=== PATIENT | male | born 1965 | race Caucasian/White ===

== ENCOUNTER 2017-03-06 18:21 | Emergency (ER) | payer OTHER, BC ==
[2017-03-06 18:31] VITALS: BP 151/94
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
--- NOTE | 2017-03-07 11:40 | CR ---
Abdomen: Supine and upright views of the abdomen were obtained. Comparison: No previous study. Bowel gas pattern appears normal. No abnormal calcifications or soft tissue abnormality is seen. Bony structures appear within normal limits for the patient's age. Impression: 1. Unremarkable two-view abdominal x-ray. Diagnostic code #1
== END 2017-03-06 20:23 | disposition home or self-care (01) ==
LOC: JD.ED 18:21
DX: R10.31 Right lower quadrant pain (principal); I10 Essential (primary) hypertension; Z98.890 Other specified postprocedural states; Z79.899 Other long term (current) drug therapy; Z91.030 Bee allergy status
CPT/HCPCS: 74020; 74020-26; 99282; 99284

== ENCOUNTER 2020-06-19 15:25 | Emergency (ER) | payer BC ==
[2020-06-19 15:41] VITALS: BP 164/100; PULSE 74
--- NOTE | 2020-06-19 15:57 | EDM.PDOC ---
ED HPI GENERAL MEDICAL PROBLEM - General Chief Complaint: Chest Pain Stated Complaint: HIGH TROPONIN LEVEL (REFERED BY GANGA) Time Seen by Provider: 06/19/20 15:46 Source of Information: Reports: Patient History Limitations: Reports: No Limitations - History of Present Illness INITIAL COMMENTS - FREE TEXT/NARRATIVE: 54-year-old male presents to the ED at the request of his family physician Dr. Rodriguez. Patient states he awoke at about 0230 hours this morning with a cramp between his shoulder blades which then turned into central chest pain that lasted about 3 to 4 minutes and then dissipated. He continues to feel a uncomfortable feeling along the right costal margin laterally. He just walked across the hospital which is 2 city blocks without any chest pain and he walks 3 miles daily without any chest pain development. He has no risk factors for cardiac disease. Apparently a troponin done this morning however it was elevated at 0.144. Patient states he has not had any chest pain since awakening in the early hours of the morning and he went back to sleep. He has no trouble swallowing. He did report that he had to burp and belch and this did seem to re lieve his discomfort during the night. Interestingly had a similar event about 2 weeks ago. Of also interest is that he is getting over COVID-19 illness. He believes he was diagnosed around 08 May 2020. He loses sense of taste and smell and he believes he is got about 90% of his back. He had a cough body aches headaches diarrhea etc. He felt that he is recovered completely from this illness by 30 May. Patient does remember eating late last night shortly before going to bed. He has no known hiatal hernia. He very rarely gets heartburn. Uses Tums on rare occasion. History of mild hypertension well- controlled with current medication. Recalls a similar event in July 2014 when he was sent to [facility] due to development of chest pain and elevated troponin. He had an ECG stress test carried out and it was negative and he was discharged to home. He therefore questions whether he runs an elevated troponin all the time. Onset: Today, Sudden Onset Date: 06/19/20 Onset Time: 02:30 (Awoke from sleep around 0230 hrs. this morning with a severe cramping type pain between his shoulder blades that then seemed to come around and be in the central part of his chest. The whole episode lasted approximately 4 minutes and seemed to improve with burping and belching.) Duration: Hour(s):, Resolved Prior to Arrival Location: Reports: Chest (Central chest pressure discomfort preceded by cramping type pain in mid back) Quality: Reports: Pressure Severity: Moderate Improves with: Reports: Other (Pain went away after 45 minutes and has not returned and is not worsened with walking today.) Worsens with: Reports: None Context: Denies: Activity, Exercise, Lifting, Sick Contact, Trauma, Other Associated Symptoms: Reports: No Other Symptoms. Denies: Confusion, Chest Pain, Cough, cough w sputum, Diaphoresis, Fever/Chills, Headaches, Loss of Appetite, Malaise, Nausea/Vomiting, Rash, Seizure, Shortness of Breath, Syncope, Weakness Treatments NAVIGATION OFFICER: Reports: Other (see below) (None.) Right Lower Chest Pain Score (Numeric/FACES): 2 - Related Data Allergies Allergy/AdvReac Type Severity Reaction Status Date / Time venom-honey bee Allergy Swelling Verified 06/19/20 15:41 [bee venom (honey bee)] Home Meds: Home Meds Losartan/Hydrochlorothiazide [Losartan-HCTZ 50-12.5 MG] 12.5 - 50 mg PO DAILY 08/27/14 [History] Past Medical History Cardiovascular History: Reports: Hypertension Gastrointestinal History: Reports: Other (See Below) Other Gastrointestinal History: hernia surgery - Infectious Disease History Infectious Disease History: Reports: Novel Coronavirus Other Infectious Disease History: tested positive over 1 month ago. all symptoms resolved Social & Family History - Tobacco Use Smoking Status *Q: Never Smoker - Living Situation & Occupation Living situation: Reports: ED ROS GENERAL - Review of Systems Review Of Systems: See Below Constitutional: Denies: Fever, Chills, Malaise, Weakness, Fatigue, Decreased Appetite, Weight Loss HEENT: Reports: No Symptoms, Other (He states his sense of smell and taste are about 90% better since ghassan COVID-19 illness.) Respiratory: Reports: Shortness of Breath ( particularly first thing in the morning.), Cough (Still has a post COVID cough and has to clear his throat and chest). Denies: Wheezing, Pleuritic Chest Pain ( Short of breath on vigorous walking.) Cardiovascular: Reports: Chest Pain (Transient chest pain that awoke him from sleep), Blood Pressure Problem ( at 0230 hrs. this morning.), Other (Ox 3 miles a day without any chest pain.). Denies: Claudication ( Controlled with medication), Dyspnea on Exertion, Edema, Lightheadedness, Orthopnea Endocrine: Reports: No Symptoms GI/Abdominal: Reports: Abdominal Pain (Is a bit of an ache along the right lateral costal margin.) : Reports: No Symptoms Musculoskeletal: Reports: No Symptoms Skin: Reports: No Symptoms Neurological: Reports: No Symptoms Psychiatric: Reports: No Symptoms Hematologic/Lymphatic: Reports: No Symptoms Immunologic: Reports: No Symptoms ED EXAM, GENERAL - Physical Exam Exam: See Below Exam Limited By: No Limitations General Appearance: Alert, WD/WN, No Apparent Distress, Other (Temperature is 36.8 heart rate 74 and sinus respiratory is 18 BP 164 100 pulse ox 98% on room air.) Eye Exam: Bilateral Eye: Normal Inspection (No scleral icterus or blepharal pallor.), PERRL Throat/Mouth: Normal Inspection, Normal Lips, Normal Teeth, Normal Oropharynx Head: Atraumatic, Normocephalic Neck: Normal Inspection, Supple, Non-Tender, Full Range of Motion. No: Carotid Bruit, Lymphadenopathy (L), Lymphadenopathy (R) Respiratory/Chest: No Respiratory Distress, Lungs Clear, Normal Breath Sounds, No Accessory Muscle Use, Chest Non-Tender Cardiovascular: Normal Peripheral Pulses, Regular Rate, Rhythm, No Edema, No Gallop, No Murmur, No Rub Peripheral Pulses: 3+: Carotid (L), Carotid (R), Posterior Tibial (L), Posterior Tibial (R), Dorsalis Pedis (L), Dorsalis Pedis (R) GI/Abdominal: Normal Bowel Sounds, Soft, Non-Tender, No Organomegaly, No Distention, No Abnormal Bruit, No Mass, Pelvis Stable. No: Guarding, Rigid, Rebound, Tender Extremities: Normal Inspection, Normal Range of Motion, Non-Tender, No Pedal Edema Neurological: Alert, Oriented, CN II-XII Intact, Normal Cognition Psychiatric: Normal Affect, Normal Mood, Anxious (Appropriately mildly anxious after being called back by his physician due to an elevated troponin and to report to the ED.) Skin Exam: Warm, Dry, Intact, Normal Color, No Rash EKG INTERPRETATION EKG Date: 06/19/20 Time: 15:34 Rhythm: NSR Rate (Beats/Min): 74 [place]: Normal P-Wave: Present QRS: Other (Early R wave transition in lead V3. Consider septal hypertrophy pattern.) ST-T: Other (Nonspecific T wave flattening in leads III and aVF V5 and V6. Mildly decreased voltage in the limb leads.) QT: Normal EKG Interpretation Comments: Borderline ECG no signs of ischemia. Course - Vital Signs Last Recorded V/S: Last Vital Signs Temp 36.8 C 06/19/20 15:37 Pulse 74 06/19/20 15:37 Resp 18 06/19/20 15:37 BP 164/100 H 06/19/20 15:37 Pulse Ox 98 06/19/20 15:37 - Orders/Labs/Meds Orders: Active Orders 24 hr Category Date Time Status Peripheral IV Insertion Adult [OM.PC] Stat Oth 06/19/20 16:04 Ordered Labs: Laboratory Tests 06/19/20 06/19/20 06/19/20 Range/Units 15:52 15:52 15:52 WBC 7.88 (4.23-9.07) K/mm3 RBC 5.13 (4.63-6.08) M/mm3 Hgb 14.6 (13.7-17.5) gm/dl Hct 42.7 (40.1-51.0) % MCV 83.2 (79.0-92.2) fl MCH 28.5 (25.7-32.2) pg MCHC 34.2 (32.2-35.5) g/dl RDW Std Deviation 38.6 (35.1-43.9) fL Plt Count 361 H (163-337) K/mm3 MPV 9.1 L (9.4-12.3) fl Neut % (Auto) 59.2 (34.0-67.9) % Lymph % (Auto) 29.3 (21.8-53.1) % [place] % (Auto) 7.9 (5.3-12.2) % Eos % (Auto) 2.8 (0.8-7.0) Baso % (Auto) 0.5 (0.1-1.2) % Neut # (Auto) 4.67 (1.78-5.38) K/mm3 Lymph # (Auto) 2.31 (1.32-3.57) K/mm3 [place] # (Auto) 0.62 (0.30-0.82) K/mm3 Eos # (Auto) 0.22 (0.04-0.54) K/mm3 Baso # (Auto) 0.04 (0.01-0.08) K/mm3 PT 11.5 (9.7-11.7) SECONDS INR 1.08 APTT 25 (22-31) SECONDS D-Dimer, Quantitative 0.57 H (0.19-0.50) mg/L Sodium 140 (136-145) mEq/L Potassium 3.5 (3.5-5.1) mEq/L Chloride 102 (98-107) mEq/L Carbon Dioxide 28 (21-32) mEq/L Anion Gap 13.5 (5-15) BUN 18 (7-18) mg/dL Creatinine 1.1 (0.7-1.3) mg/dL Est Cr Clr Drug Dosing TNP Estimated GFR (MDRD) > 60 (>60) mL/min BUN/Creatinine Ratio 16.4 (14-18) Glucose 108 H (74-106) mg/dL Calcium 8.7 (8.5-10.1) mg/dL Magnesium 2.2 (1.8-2.4) mg/dl Total Bilirubin 0.4 (0.2-1.0) mg/dL AST 24 (15-37) U/L ALT 51 (16-63) U/L Alkaline Phosphatase 86 (46-116) U/L CK-MB (CK-2) 0.7 (0-3.6) ng/ml Troponin I 0.114 H* (0.00-0.056) ng/mL C-Reactive Protein 0.9 (<1.0) mg/dL NT-Pro-B Natriuret Pep (0-125) pg/mL Total Protein 7.6 (6.4-8.2) g/dl Albumin 4.0 (3.4-5.0) g/dl Globulin 3.6 gm/dL Albumin/Globulin Ratio 1.1 (1-2) Urine Color (Yellow) Urine Appearance (Clear) Urine pH (5.0-8.0) Ur Specific [place] (1.005-1.030) Urine Protein (Negative) Urine Glucose (UA) (Negative) Urine Ketones (Negative) Urine Occult Blood (Negative) Urine Nitrite (Negative) Urine Bilirubin (Negative) Urine Urobilinogen (0.2-1.0) Ur Leukocyte Esterase (Negative) Urine RBC (0-5) /hpf Urine WBC (0-5) /hpf Ur Squamous Epith Cells (0-5) /hpf Urine Bacteria (FEW) /hpf Urine Mucus (FEW) /hpf 06/19/20 06/19/20 Range/Units 15:52 16:20 WBC (4.23-9.07) K/mm3 RBC (4.63-6.08) M/mm3 Hgb (13.7-17.5) gm/dl Hct (40.1-51.0) % MCV (79.0-92.2) fl MCH (25.7-32.2) pg MCHC (32.2-35.5) g/dl RDW Std Deviation (35.1-43.9) fL Plt Count (163-337) K/mm3 MPV (9.4-12.3) fl Neut % (Auto) (34.0-67.9) % Lymph % (Auto) (21.8-53.1) % [place] % (Auto) (5.3-12.2) % Eos % (Auto) (0.8-7.0) Baso % (Auto) (0.1-1.2) % Neut # (Auto) (1.78-5.38) K/mm3 Lymph # (Auto) (1.32-3.57) K/mm3 [place] # (Auto) (0.30-0.82) K/mm3 Eos # (Auto) (0.04-0.54) K/mm3 Baso # (Auto) (0.01-0.08) K/mm3 PT (9.7-11.7) SECONDS INR APTT (22-31) SECONDS D-Dimer, Quantitative (0.19-0.50) mg/L Sodium (136-145) mEq/L Potassium (3.5-5.1) mEq/L Chloride (98-107) mEq/L Carbon Dioxide (21-32) mEq/L Anion Gap (5-15) BUN (7-18) mg/dL Creatinine (0.7-1.3) mg/dL Est Cr Clr Drug Dosing Estimated GFR (MDRD) (>60) mL/min BUN/Creatinine Ratio (14-18) Glucose (74-106) mg/dL Calcium (8.5-10.1) mg/dL Magnesium (1.8-2.4) mg/dl Total Bilirubin (0.2-1.0) mg/dL AST (15-37) U/L ALT (16-63) U/L Alkaline Phosphatase (46-116) U/L CK-MB (CK-2) (0-3.6) ng/ml Troponin I (0.00-0.056) ng/mL C-Reactive Protein (<1.0) mg/dL NT-Pro-B Natriuret Pep 51 (0-125) pg/mL Total Protein (6.4-8.2) g/dl Albumin (3.4-5.0) g/dl Globulin gm/dL Albumin/Globulin Ratio (1-2) Urine Color Yellow (Yellow) Urine Appearance Clear (Clear) Urine pH 7.0 (5.0-8.0) Ur Specific [place] 1.020 (1.005-1.030) Urine Protein Negative (Negative) Urine Glucose (UA) Negative (Negative) Urine Ketones Negative (Negative) Urine Occult Blood Trace-intact H (Negative) Urine Nitrite Negative (Negative) Urine Bilirubin Negative (Negative) Urine Urobilinogen 0.2 (0.2-1.0) Ur Leukocyte Esterase Negative (Negative) Urine RBC 0-5 (0-5) /hpf Urine WBC 0-5 (0-5) /hpf Ur Squamous Epith Cells 0-5 (0-5) /hpf Urine Bacteria Few (FEW) /hpf Urine Mucus Not seen (FEW) /hpf Meds: Medications Discontinued Medications Generic Name Dose Route Start Last Admin Trade Name Freq PRN Reason Stop Dose Admin Sodium Chloride 10 ml 06/19/20 16:04 06/19/20 16:05 Saline Flush FLUSH 10 ml ASDIRECTED PRN Administration Keep Vein Open - Radiology Interpretation Free Text/Narrative:: 54-year-old male attends the ED at the request of his primary care physician . Patient presented to the clinic early this morning after being awoken around 0 to 30 hours in the morning with a bad cramping pain between his shoulder blades which turned into central chest pressure discomfort lasting about 4 to 5 minutes and seemingly improved by burping and belching. Patient was able to roll over and go back to sleep and when he awoke he had no pain. When he attended the clinic however he had lab work performed and was found to have a slightly elevated d-dimer at 0.58 with normal being up to 0.50 and an elevated troponin at 0.144. These results did not become available to Dr. Rodriguez until well after the patient had left his office. Due to the elevated troponin patient was advised to return to the ED for follow-up of possible myocardial infarction. On firm questioning the patient has no chest pain he just walked from the other side of the hospital which is like 2 blocks. He indicates that he walks at least 3 miles a day with his and never has chest pains. He had a similar bout of cramping between his shoulder blades and anterior chest pain about 2 weeks ago. At all the of the times it was felt that this occurred after eating a rather large meal and last night he went to bed shortly after eating as well. This suggest possible hiatal hernia as a cause of his transient chest pain. Particularly since it improved with burping and belching. He is repeat ECG in the department shows sinus rhythm at 74/min. There is early R wave transition giving some concern for possible septal hypertrophy. There was decreased voltage in the limb leads. There is T wave flattening in leads III and aVF and V5 and V6 which are nonspecific findings. No obvious ischemic change present. Plan he will have repeat labs performed including CK-MB fraction and troponin and d-dimer. Examination is otherwise completely normal. - Re-Assessments/Exams Free Text/Narrative Re-Assessment/Exam: 06/19/20 17:26: . Labs reveal a white count of 7.88 with 59% neutrophils. Hemoglobin is 14.6 with hematocrit of 42.7. Platelet count slightly elevated at 361,000. PT was 11.5 with an INR of 1.08. PTT was 25 d-dimer now is 0.57 and it was 0.58 earlier today at [facility]. Sodium 140 with a potassium low normal at 3.5. Chloride 102 with a bicarb of 28. Anion gap is 13.5. BUN is 18 with a creatinine of 1.1 and GFR greater than 60. Glucose is 108 calcium 8.7. Magnesium normal at 2.2. Liver function normal CK-MB fraction was 0.7 troponin I is elevated at 0.114 lower than at the clinic today but still elevated. BNP is 51 total protein 7.6 with an albumin fraction of 4.0. Urinalysis revealed a trace of occult blood. I discussed the findings with the patient and he indicated that he was hospitalized at [facility] in about 2013 shortly before the old hospital was closed. I therefore informed that institution and identified that he was seen around August 12 or after because of transient central chest pain similar to what he experienced this morning. He had elevated troponin I at that time as well. He ended up having a ECG stress test and was discharged home. One wonders therefore if he does not have a chronically elevated serum troponin level. However when I spoke with Dr. Adams--on-call table assembler he identified that they are identifying patients post COVID illness who are developing a post COVID myocarditis with elevated troponins. He recommends the patient have a echocardiogram and follow-up. The findings were discussed with the patient and I did contact his primary care physician Dr. Rodriguez who will set up the echocardiogram as an outpatient. I am thinking that he probably has a hiatal hernia which caused his transient back and chest pain earlier this morning and that the 2 things are not related. Patient will be discharged to home with no changes made other than suggesting a baby aspirin once a day. Departure - Departure Time of Disposition: 17:42 Disposition: Home, Self-Care 01 Reason for Transfer *Q: Other Condition: Fair Clinical Impression: Myocarditis due to COVID-19 virus, Hiatal hernia Instructions: COVID-19, Hiatal Hernia Referrals: Isrrael Reece MD [Primary Care Provider] - Forms: ED Department Discharge Additional Instructions: Evaluation in the emergency room today at the request of your primary care physician . You developed a bout of cramping pain in between her shoulder blades which then became anterior chest pressure discomfort in the middle of the night this morning which resolved after 4 minutes or so. You have been walking and been been busy the rest of the day with no recurrence of chest pain. Checkup at the clinic today revealed that you had elevated d-dimer mildly at 0.58. Normal is 0.50. Your troponin which is a marker for heart muscle was elevated at 0.144 with normal being 0.056. On retesting here in the emergency room your ECG is normal he remained pain-free. Your troponin now is 0.114 and the CK-MB fraction which goes up usually within the first 24 hours of a heart attack is 0.7 well within the normal range. Your d-dimer now is 0.57 the same as it was this morning and is of no consequence. On speaking with cardiology at [facility] in [place] they indicate that they are seeing post COVID myocarditis meaning that there is a persistent inflammation of the heart muscle from the stress of getting COVID-19 virus. We have yet to learn a good deal more about how long this is going to last and if it is going to cause any permanent effects. Suggested that you take a baby aspirin on a daily basis probably for the next 3 months you will need a echocardiogram done ,which is an ultrasound of your heart to measure how well the heart is pumping and if there are any structural changes to the heart muscle and Dr Rodriguez stated he will make these arrangements .make that arrangement through the radiology . Follow-up with Dr. Rodriguez in about a week's time for repeat cardiac markers to see if they are still elevated. Return of course to the emergency room at any time if you develop chest pain that is not going away after 5 -10 minutes. I believe that there is no relationship between the bout of pain you experience her night and the elevated cardiac markers. I suspect you have a sliding hiatal hernia that caused your chest pain which and has done it in the past by history and that is why it lasted for such a short period of time and often gets better with burping or belching or sometimes getting up and walking for a period of time. It is worsened of course by going to bed with a full stomach and you should try to go to bed with 3 hours from the last meal at a bare minimum to try and prevent similar occurrence. Awaiting the head of the bed by 4 inches x 2 2 by fours under the head of the bed sometimes will help prevent a hiatal hernia from occurring during the nighttime when the effect of gravity is gone. Sepsis Event Note (ED) - Evaluation Sepsis Screening Result: No Definite Risk - Focused Exam Vital Signs: Vital Signs Temp Pulse Resp BP Pulse Ox 06/19/20 15:37 36.8 C 74 18 164/100 H 98 - My Orders Last 24 Hours: My Active Orders 06/19/20 16:04 Peripheral IV Insertion Adult [OM.PC] Stat - Assessment/Plan Last 24 Hours: My Active Orders 06/19/20 16:04 Peripheral IV Insertion Adult [OM.PC] Stat
[2020-06-19] MEDS ORDERED: Sodium Chloride 0.9% 10 ML Syringe FLUSH PRN (16:04)
--- NOTE | 2020-06-19 16:30 | CR ---
Chest: Portable view of the chest was obtained. Comparison: Prior chest x-ray of 08/27/14. Heart size and mediastinum are normal. Lungs are clear with no acute parenchymal change. Bony structures are grossly intact. Impression: 1. Nothing acute is seen on portable chest x-ray. Diagnostic code #1 Study was dictated in MDT
== END 2020-06-19 18:10 | disposition home or self-care (01) ==
LOC: JD.ED 15:25
DX: I51.4 Myocarditis, unspecified (principal); K44.9 Diaphragmatic hernia without obstruction or gangrene; I10 Essential (primary) hypertension; Z86.19 Personal history of other infectious and parasitic diseases; Z91.030 Bee allergy status; Z79.899 Other long term (current) drug therapy
CPT/HCPCS: 36415; 71045; 71045-26; 80053; 81001; 82553; 83735; 83880; 84484; 85025; 85379; 85610; 85730; 86140; 93010; 99283; 99285-25

== ENCOUNTER 2023-09-12 10:33 | Emergency (ER) | payer BC ==
[2023-09-12] MEDS ORDERED: HYDROmorphone 0.5 MG/0.5 ML Syringe IVPUSH ONE (11:09)
[2023-09-12] MEDS ORDERED: Sodium Chloride 0.9% 1,000 ML IV STA (11:09)
[2023-09-12] MEDS ORDERED: Ondansetron 4 MG/2 ML SDV IVPUSH ONE (11:09)
[2023-09-12] MEDS ORDERED: Sodium Chloride 0.9% 10 ML Syringe FLUSH PRN (11:09)
[2023-09-12] MEDS ORDERED: Iopamidol 612 MG/ML 100 ML Bottle IVPUSH ONE (11:16)
[2023-09-12] MEDS: Sodium Chloride 0.9% 10 ML Syringe FLUSH PRN ×2 (11:31→11:47)
[2023-09-12 11:38] LABS: BASOPHILS PERCENT AUTO 0.9 % (0.0-1.0); EOSINOPHILS ABSOLUTE AUTO 0.1 K/mm3 (0.0-0.4); EOSINOPHILS PERCENT AUTO 3.2 % (0.0-6.0); HEMATOCRIT 42.5 % (42.0-52.0); HEMOGLOBIN 14.8 gm/dl (14.0-18.0); IMMATURE GRAN ABSOLUTE AUTO 0.01 K/mm3 (0.00-0.05); IMMATURE GRAN PERCENT AUTO 0.2 % (0.0-0.4); LYMPHOCYTES ABSOLUTE AUTO 1.7 K/mm3 (1.0-4.8); LYMPHOCYTES PERCENT AUTO 38.1 % (24.0-44.0); MEAN CORPUSCULAR HGB CONC 34.8 g/dl (32.0-36.0); MEAN CORPUSCULAR VOLUME 83.3 fl (83.0-99.0); MONOCYTES ABSOLUTE AUTO 0.3 K/mm3 (0.0-0.8); MONOCYTES PERCENT AUTO 5.7 % (0.0-8.0); NEUTROPHILS ABSOLUTE AUTO 2.3 K/mm3 (1.8-7.7); NEUTROPHILS PERCENT AUTO 51.9 % (41.0-71.0); PLATELET COUNT,PLT 350 K/mm3 (150-400); WHITE BLOOD CELL COUNT,WBC 4.36 K/mm3 (3.9-11.3)
[2023-09-12 12:07] LABS: A/G RATIO 1.1 (1-2); ALANINE AMINOTRANSFERASE,ALT 41 U/L (16-63); ALBUMIN 4.1 g/dl (3.4-5.0); ALKALINE PHOSPHATASE 89 U/L (46-116); ANION GAP 12.6 (5-15); ASPARTATE AMNIOTRANSFERASE,AST 22 U/L (15-37); BILIRUBIN TOTAL 0.6 mg/dL (0.2-1.0); BLOOD UREA NITROGEN,BUN 16 mg/dL (7-18); C-REACTIVE PROTEIN <0.2 mg/dL (<1.0); CALCIUM 9.6 mg/dL (8.5-10.1); CARBON DIOXIDE,CO2 28 mEq/L (21-32); CHLORIDE,CL 102 mEq/L (98-107); EST CRCL DRUG DOSING (CG) 80.75 mL/min; ESTIMATED GFR 89 mL/min (>60); GLUCOSE RANDOM 122 mg/dL (70-99); POTASSIUM,K 3.6 mEq/L (3.5-5.1); PROTEIN TOTAL,TP 7.7 g/dl (6.4-8.2); SODIUM,NA 139 mEq/L (136-145)
[2023-09-12] MEDS ORDERED: Gabapentin 100 MG Cap PO ONE (13:13)
[2023-09-12 13:26] VITALS: BP 138/86; PULSE 70
== END 2023-09-12 13:20 | disposition home or self-care (01) ==
LOC: JD.ED 10:33
DX: R10.32 Left lower quadrant pain (principal); G89.18 Other acute postprocedural pain; I10 Essential (primary) hypertension; Z86.16 Personal history of COVID-19; Z79.899 Other long term (current) drug therapy; Z91.030 Bee allergy status
CPT/HCPCS: 36415; 74177; 80053; 85025; 86140; 96374; 96375; 99284; A9270; J1170; J2405; J3490; J7030; Q9967